=== PATIENT | male | born 1980 | race Caucasian/White ===

== ENCOUNTER 2017-11-06 09:48 | Inpatient (IN) ==
[2017-11-06] MEDS ORDERED: MORPHINE SULFATE 4 MG/1 ML IVP ONE (09:57)
[2017-11-06] MEDS ORDERED: ONDANSETRON 4 MG/2 ML VIAL IVP ONE (09:57)
[2017-11-06] MEDS ORDERED: Pantoprazole Inj 40 MG in Normal Saline Flush 10 ML IVP ONE (09:57)
[2017-11-06] MEDS ORDERED: Sodium Chloride 0.9% 1,000 ML PRIMARY IV ONE (09:57)
[2017-11-06] MEDS ORDERED: NORMAL SALINE 10 ML SYRINGE FLUSH IVP PRN ×2 (09:57→12:21)
--- NOTE | 2017-11-06 10:02 | EKG ---
[address] [address] Measurements Intervals [place] Rate: 60 P: 11 VA: 186 QRS: 52 QRSD: 90 T: 47 QT: 422 QTc: 422 Interpretive Statements SINUS RHYTHM No previous ECG available for comparison Electronically Signed On 11-06-17 16:50:17 MDT by Nader Lee [email or web address]
--- NOTE | 2017-11-06 10:04 | PDOC ---
Abdomen/Flank HPI - General Chief Complaint: Abdomen Pain Stated Complaint: abd pain Date Seen by Provider: 11/06/17 Time Seen by Provider: 09:55 Source: POSITIVE: Patient Exam Limitations: POSITIVE: No limitations Nurse's Notes Reviewed & Considered: Yes - History of Present Illness Initial Comments: The patient is a 37-year-old male who presents to the emergency department with complaints of epigastric abdominal pain. He states he had onset of pain several days ago. He also reports associated general malaise and nausea. Last night the pain seemed to intensify and he also had several episodes of emesis. The pain currently is about an 8 or 9 out of 10 and he is very uncomfortable. He does not have any history of similar pain in the past. The pain does not radiate through to his back or up into his chest. The pain is not significantly worsened with taking a deep breath and actually he states that feels slightly better when he does so. He has not had any associated diarrhea, hematemesis or blood in the stool. He does not have any known history of ulcers or stomach issues. He does drink a fair amount of caffeinated soda however denies tobacco or significant alcohol use. He states the last time he had anything to drink was a beer maybe a week ago. He has not had any prior abdominal surgery. - Patient Home Medications Home Medications: Home Medications NK [No Home Medications Reported] 01/18/14 - Patient Allergies Allergies/Adverse Reactions: Allergies 3 Allergy/AdvReac Type Severity Reaction Status Date / Time Sulfa (Sulfonamide Allergy UNKNOWN Unverified 12/23/14 18:16 Antibiotics) Past Medical History - heen HEENT History: Dentures/Partials Cardiovascular History: Denies History Respiratory History: Denies History Gastrointestinal History: Denies History Genitourinary History: Denies History Endocrine History: Denies History Musculoskeletal History: Back Pain Prosthesis or Implant: No Neurological History: Denies History Blood Disorders: Denies History Psychiatric History: Denies History History of Sexually Transmitted Diseases: No Cancer History: Denies History History of MDRO: No History of Other Communicable Diseases: No Alcohol Use: Rarely In the Past 12 Months, Have Used or Abuse Any Substance: None Previous Surgical History: No Significant Family History: Diabetes Past Medical History Reviewed: Reviewed - No Changes ROS - Limitations ROS Limitations: No Limitations Constitution: DENIES: Chills, Fever Cardiovascular: DENIES: Chest Pain, Heart Palpitations, Edema Respiratory: DENIES: Hurts To Breathe, Shortness Of Breath Neurological: REPORTS: Denies Neuro Symptoms Gastrointestinal: REPORTS: Abdominal Pain, Nausea, Vomitting. DENIES: Diarrhea , Black Stools, Bloody Stools, Constipation Musculoskeletal: REPORTS: Denies MS Symptoms Genitourinary: REPORTS: Denies Symptoms Eyes: REPORTS: Denies Symptoms ENT: REPORTS: Denies Symptoms Skin: DENIES: Rash Abdominal/Flank Pain PE - General Appearance General Appearance: POSITIVE: Alert, Cooperative, No Acute Distress - HEENT HEENT: POSITIVE: Head Inspection Nml, Eyes Inspection Nml, Ears Inspection Nml, Nose Inspection Nml, Dry Mucous Membranes - Neck Neck: POSITIVE: Normal Inspection. NEGATIVE: Lymphadenopathy - Respiratory Respiratory: POSITIVE: No Respiratory Distress, Breath Sounds Normal - Cardiovascular Cardiovascular: POSITIVE: Regular Rate and Rhythm, Heart Sounds Normal - Abdomen Abdomen: Soft: (All Quadrants), Normal Bowel Sounds: (All Quadrants) (bowel sounds are present however somewhat hypoactive), No [place] Mass: (All Quadrants) Additional Abdominal Details: His abdomen is mildly distended, he does have tenderness primarily in the epigastric and left upper quadrants with some localized rebound tenderness, no guarding, bowel sounds are present however somewhat hypoactive, no palpable mass - Back Back: POSITIVE: Normal Inspection - Skin Skin: POSITIVE: Intact, No Rash - Extremities Extremity: Normal ROM: (All Extremities), Normal Inspection: (All Extremities) - Neurological Neurological: POSITIVE: Oriented X3, Motor Normal, Sensation Normal Abdomen Progress - Results Reviewed by me Xrays/CTs/US Reviewed by me: Yes Discussed with Radiologist: Yes Radiology Findings: CT scan of the abdomen and pelvis with IV contrast reveals inflammatory changes around the pancreas consistent with pancreatitis, no other acute findings per radiologist verbal report Lab Results Reviewed by Me: Yes CBC and BMP: 11/06/17 10:13 11/06/17 10:13 EKG Interpretation:: POSITIVE: Normal Sinus Rhythm, Normal Rate, Normal QRS, Normal ST/T - Patient's Progress MDM / ED Course: An IV was established and the patient did receive morphine 4 mg IV, Zofran 4 mg IV and Protonix 40 mg IV as well as a normal saline bolus 1 L. The patient was still having considerable pain even after the morphine. He received Dilaudid 1 mg IV. His EKG shows a normal sinus rhythm with no evidence of acute ST segment or T-wave changes. His d-dimer and troponin are normal. Blood work reveals an elevated white count at 12, elevated amylase and significantly elevated lipase which is still currently being diluted in the lab. CT scan of the abdomen and pelvis shows inflammatory changes around the pancreas consistent with pancreatitis with no other acute abnormalities per radiologist. The patient appears to have pancreatitis. I discussed the patient with Dr. Huff and he is agreed to admit the patient. I also discussed findings with the patient and his and they are in agreement with current plan. - Consult Counseled: POSITIVE: Patient, Family, RE: Lab Results, RE: Radiology Results, RE : DX Patient Care Time - Estimated PCT Patient Care Time (In Minutes): 40 Vital Signs - VS Reviewed Vital Signs Reviewed: Yes Discharge Clinical Impression: Pancreatitis Discharge Disposition: Admit to Inpatient Condition: Fair Follow Up With: NONE,NONE [Primary Care Provider] - Date Decision to Admit to Inpatient: 11/06/17 Time Decision to Admit to Inpatient: 11:20
[2017-11-06 10:20] LABS: BASOPHILS # (AUTO) 0.01 10*3/UL; BASOPHILS % (AUTO) 0.1 % (0-1); EOSINOPHILS # (AUTO) 0.17 10*3/UL; EOSINOPHILS % (AUTO) 1.4 % (0-8); Hematocrit [HCT] 45.8 % (42.0-52.0); Hemoglobin [HGB] 15.8 g/dL (14.0-18.0); LYMPHOCYTES # (AUTO) 1.32 10*3/uL; MEAN CORPUSCULAR HEMOGLOBIN 29.4 PG (27-31); MEAN CORPUSCULAR HGB CONC 34.5 g/dL (33-37); MEAN CORPUSCULAR VOLUME 85.3 FL (80-90); MEAN PLATELET VOLUME 10.9 FL (7.4-12.2); MONOCYTES # (AUTO) 0.64 10*3/UL (0.3-0.8); MONOCYTES % (AUTO) 5.2 % (5-15); NEUTROPHILS % (AUTO) 82.4 % (50-80); RED BLOOD COUNT 5.37 10^6/uL (4.70-6.10)
[2017-11-06 10:29] LABS: PLATELET MORPHOLOGY COMMENT NORMAL MORPHOLOGY (NORM); RBC MORPHOLOGY COMMENT NORMAL MORPHOLOGY (NORM); WBC MORPHOLOGY COMMENT NORMAL MORPHOLOGY (NORM)
[2017-11-06] MEDS ORDERED: HYDROmorphone 2 MG/1 ML IVP ONE ×2 (10:31→11:51)
[2017-11-06 10:46] LABS: BLOOD UREA NITROGEN 11 mg/dL (7-22); BUN/CREATININE RATIO 15.71 (6-20); SERUM ALBUMIN 4.5 g/dL (3.5-4.8)
--- NOTE | 2017-11-06 11:23 | DI ---
CT Abdomen/Pelvis W Contrast,11/06/2017 9:58 AM: Clinical History: Abdominal pain Previous Exam: None at this facility. Findings: Multiple helically acquired CT images are obtained through the abdomen and pelvis following the intra venous administration of 95 cc of Isovue 300. There is mild diffuse fatty infiltration of the liver. The appendix is normal. There are a few small subcentimeter hypodensities too small to characterize within the liver. The spleen is unremarkable. T he adrenals and kidneys are unremarkable. The pancreas demonstrates peripancreatic fat stranding without evidence of pseudocyst or abscess. The urinary bladder is unremarkable. There is no free air nor free fluid. Skeletal structures are unr emarkable. Mild degenerative changes are seen involving the lumbar spine worst at the L5/S1 level. Impression: Inflammatory changes in the peripancreatic fat most consistent with acute pancreatitis. There is no e vidence of abscess nor pseudocyst.
[2017-11-06 11:31] LABS: BILIRUBIN,URINE NEGATIVE (NEG); CLARITY,URINE CLEAR (CLEAR); COLOR,URINE YELLOW (Y); GLUCOSE, URINE (UA) NEGATIVE (NEG); OCCULT BLOOD,URINE NEGATIVE (NEG); PH,URINE 8.5 (5.0-8.5); PROTEIN,URINE TRACE mg/dl (NEG); UROBILINOGEN,URINE 0.2 EU/dL (0.2)
[2017-11-06 11:33] LABS: URINE SAMPLE TYPE VOIDED SPECIMEN
[2017-11-06 11:35] LABS: LIPASE 9710 IU/L (23-300)
[2017-11-06] MEDS ORDERED: CALCIUM CARBONATE 500 MG (TUMS) CHEWABLE TABLET PO PRN (12:21)
[2017-11-06] MEDS ORDERED: ACETAMINOPHEN 325 MG TABLET PO PRN (12:21)
[2017-11-06] MEDS ORDERED: DOCUSATE 100 MG CAPSULE PO PRN (12:21)
[2017-11-06] MEDS ORDERED: LIDOCAINE W/ SODIUM BICARB 0.5 ML SYR SUBD PRN (12:21)
[2017-11-06] MEDS ORDERED: HYDROmorphone 2 MG/1 ML IVP PRN (12:21)
[2017-11-06] MEDS: D5-1/2NS + 20mEq KCL 1,000 ML PRIMARY IV SCH ×2 (12:50→20:06)
[2017-11-06] MEDS: HYDROmorphone 2 MG/1 ML IVP PRN ×4 (13:42→22:21)
--- NOTE | 2017-11-06 14:04 | PDOC ---
HPI - History of Present Illness Date of Service: 11/06/17 Time of Service: 13:50 Chief Complaint: Abdominal pain History of Present Illness: This a very pleasant 37 year old male with no prior past medical history states that 2 nights ago his abdomen started hurting. It was epigastric pain and generalized abdominal pain. He had some nausea and vomiting with this. He denies any diarrhea. He denies any fevers or chills. He's never had an abdominal pain like this before. He states it got worse at work, and he did not notice any association with food per se. In the emergency room, he had a CT scan of the abdomen and pelvis that showed acute pancreatitis and then he had lipase level that was elevated as well. His labs did not reflect any choledocholithiasis. He states he drinks an occasional beer, but has not had anything to drink in the last 4 days. He still has his gallbladder. He does not know his cholesterol status. He tried some ibuprofen but her right back up. Past Medical History Medical History: None Surgical History: No prior surgeries Pertinent Family History: He states there is diabetes in his family concerning his mother and father. Past Social History: Does not smoke. Drinks occasional beer. . Has 3 children described as healthy. 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 Tobacco Use: Never Smoker In the Past 12 Months, Have Used or Abuse Any of the Following Substance: None Alcohol Use: Occasionally Medication / Allergies Home Medications: Home Medications 3 Medication Instructions Recorded Confirmed Type NK [No Home Medications Reported] 01/18/14 11/06/17 History Allergies/Adverse Reactions: Allergies 3 Allergy/AdvReac Type Severity Reaction Status Date / Time Sulfa (Sulfonamide Allergy UNKNOWN Verified 11/06/17 11:44 Antibiotics) Review of Systems - Review of Systems All Systems: Reviewed & No Additional Complaints Except as Stated (I did a 12 point review of systems and it was negative other than that discussed in history present illness.) Exam - Vitals Vital Signs: Vital Signs Temperature 96.8 F Temperature Source Temporal Artery Scan Pulse Rate [Pulse Oximeter] 63 Respiratory Rate 18 Blood Pressure [Right Arm] 158/92 Pulse Ox 98 Oxygen Flow Rate 2 Oxygen Delivery Method Nasal Cannula Height 6 ft 2 in Weight 240 lb - General General Appearance: No Acute Distress, Cooperative - Head Head Exam: Normal Inspection, Normocephalic, Atraumatic - Eye Eye Exam: POSITIVE: No Scleral Icterus - ENT ENT Exam: POSITIVE: Mucous Membranes Dry - Neck Neck Exam: Normal Inspection, No Tenderness, No Lymphadenopathy, No Thyromegaly - Respiratory Respiratory Exam: POSITIVE: Clear to Auscultation - Bilaterally, Breathing Non Labored, Normal to Percussion and Palpation - Cardiovascular Cardiovascular Exam: POSITIVE: RRR, No Murmur, No Clicks, No Gallops, No Rubs, No JVD - GI/Abdominal GI/Abdominal Exam: POSITIVE: Normal Bowel Sounds, Non Distended, Soft Additional GI/Abdominal Exam Details: Epigastric tenderness on palpation - Rectal Rectal Exam: POSITIVE: Deferred - External Exam: POSITIVE: Deferred Exam: POSITIVE: Deferred - Extremities Extremities Exam: POSITIVE: No Clubbing Present, No Edema Present, No Cyanosis Present - Back Back Exam: POSITIVE: No CVA Tenderness - Neurological Neurological Exam: POSITIVE: Alert, Oriented x 3, No Facial Droop, Speech Intact / Clear, Moves All Extremities Equally - Psychiatric Psychiatric Exam: POSITIVE: Normal Affect, Normal Mood - Central Line Examination Central Line Present on Admission: No Results - Labs CBC and BMP: 11/06/17 10:13 11/06/17 10:13 Additional Lab Results: Laboratory Results 11/06/17 11/06/17 11/06/17 Range/Units 10:13 10:13 10:13 WBC 12.37 H (4.8-10.8) 10^3/uL RBC 5.37 (4.70-6.10) 10^6/uL Hgb 15.8 (14.0-18.0) g/dL Hct 45.8 (42.0-52.0) % MCV 85.3 (80-90) FL MCH 29.4 (27-31) PG MCHC 34.5 (33-37) g/dL RDW Std Deviation 40.9 (39-50) fL RDW Coeff of Marija 13.3 (11.5-14.5) % Plt Count 209 (140-350) 10*3/uL MPV 10.9 (7.4-12.2) FL Immature Gran % (Auto) 0.2 (0-5) % Neut % (Auto) 82.4 H (50-80) % Lymph % (Auto) 10.7 (10-50) % [place] % (Auto) 5.2 (5-15) % Eos % (Auto) 1.4 (0-8) % Baso % (Auto) 0.1 (0-1) % Immature Gran # (Auto) 0.03 10*3/UL Neut # (Auto) 10.20 10*3/UL Lymph # (Auto) 1.32 10*3/uL [place] # (Auto) 0.64 (0.3-0.8) 10*3/UL Eos # (Auto) 0.17 10*3/UL Baso # (Auto) 0.01 10*3/UL WBC Morphology Comment Normal morphology (NORM) Plt Morphology Comment Normal morphology (NORM) RBC Morph Comment Normal morphology (NORM) D-Dimer 0.38 (0.00-0.59) mg/L Sodium 140 (135-145) meq/L Potassium 3.9 (3.8-5.2) meq/L Chloride 104 (98-112) meq/L Carbon Dioxide 22 L (23-33) meq/L Anion Gap 14 (5-20) BUN 11 (7-22) mg/dL Creatinine 0.7 (0.70-1.50) mg/dL Estimated GFR > 60 (>60 ml/min/1.73m(2)) BUN/Creatinine Ratio 15.71 (6-20) Glucose 143 H (78-110) mg/dL Calculated Osmolality 290.0 (267-292) mOsm/kg Lactic Acid (0.70-2.10) MMOL/L Calcium 9.3 (8.7-10.7) mg/dL Total Bilirubin 0.8 (0.3-1.2) mg/dL AST 30 (21-57) IU/L ALT 65 (21-72) IU/L Alkaline Phosphatase 78 (38-126) IU/L Troponin I (< 0.040) ng/mL C-Reactive Protein 2.6 H (0.0-0.9) mg/dL Total Protein 7.8 (6.1-8.0) g/dL Albumin 4.5 (3.5-4.8) g/dL Globulin 3.3 (2.50-4.10) g/dL Albumin/Globulin Ratio 1.30 (1.3-2.0) mg/g Amylase 448 H (30-110) U/L Lipase 9710 H* (23-300) IU/L Ur Collection Type Urine Color (Y) Urine Clarity (CLEAR) Urine pH (5.0-8.5) Ur Specific [place] (1.005-1.030) Urine Protein (NEG) mg/dl Urine Glucose (UA) (NEG) mg/dL Urine Ketones (NEG) Urine Occult Blood (NEG) Urine Nitrate (NEG) Urine Bilirubin (NEG) Urine Urobilinogen (0.2) EU/dL Ur Leukocyte Esterase (NEG) Ur Culture Indicated? Serum Alcohol (0-10) mg/dL 11/06/17 11/06/17 11/06/17 Range/Units 10:13 10:13 11:06 WBC (4.8-10.8) 10^3/uL RBC (4.70-6.10) 10^6/uL Hgb (14.0-18.0) g/dL Hct (42.0-52.0) % MCV (80-90) FL MCH (27-31) PG MCHC (33-37) g/dL RDW Std Deviation (39-50) fL RDW Coeff of Marija (11.5-14.5) % Plt Count (140-350) 10*3/uL MPV (7.4-12.2) FL Immature Gran % (Auto) (0-5) % Neut % (Auto) (50-80) % Lymph % (Auto) (10-50) % [place] % (Auto) (5-15) % Eos % (Auto) (0-8) % Baso % (Auto) (0-1) % Immature Gran # (Auto) 10*3/UL Neut # (Auto) 10*3/UL Lymph # (Auto) 10*3/uL [place] # (Auto) (0.3-0.8) 10*3/UL Eos # (Auto) 10*3/UL Baso # (Auto) 10*3/UL WBC Morphology Comment (NORM) Plt Morphology Comment (NORM) RBC Morph Comment (NORM) D-Dimer (0.00-0.59) mg/L Sodium (135-145) meq/L Potassium (3.8-5.2) meq/L Chloride (98-112) meq/L Carbon Dioxide (23-33) meq/L Anion Gap (5-20) BUN (7-22) mg/dL Creatinine (0.70-1.50) mg/dL Estimated GFR (>60 ml/min/1.73m(2)) BUN/Creatinine Ratio (6-20) Glucose (78-110) mg/dL Calculated Osmolality (267-292) mOsm/kg Lactic Acid 1.1 (0.70-2.10) MMOL/L Calcium (8.7-10.7) mg/dL Total Bilirubin (0.3-1.2) mg/dL AST (21-57) IU/L ALT (21-72) IU/L Alkaline Phosphatase (38-126) IU/L Troponin I < 0.012 (< 0.040) ng/mL C-Reactive Protein (0.0-0.9) mg/dL Total Protein (6.1-8.0) g/dL Albumin (3.5-4.8) g/dL Globulin (2.50-4.10) g/dL Albumin/Globulin Ratio (1.3-2.0) mg/g Amylase (30-110) U/L Lipase (23-300) IU/L Ur Collection Type Urine Color (Y) Urine Clarity (CLEAR) Urine pH (5.0-8.5) Ur Specific [place] (1.005-1.030) Urine Protein (NEG) mg/dl Urine Glucose (UA) (NEG) mg/dL Urine Ketones (NEG) Urine Occult Blood (NEG) Urine Nitrate (NEG) Urine Bilirubin (NEG) Urine Urobilinogen (0.2) EU/dL Ur Leukocyte Esterase (NEG) Ur Culture Indicated? Serum Alcohol < 10 (0-10) mg/dL 11/06/17 Range/Units 11:20 WBC (4.8-10.8) 10^3/uL RBC (4.70-6.10) 10^6/uL Hgb (14.0-18.0) g/dL Hct (42.0-52.0) % MCV (80-90) FL MCH (27-31) PG MCHC (33-37) g/dL RDW Std Deviation (39-50) fL RDW Coeff of Marija (11.5-14.5) % Plt Count (140-350) 10*3/uL MPV (7.4-12.2) FL Immature Gran % (Auto) (0-5) % Neut % (Auto) (50-80) % Lymph % (Auto) (10-50) % [place] % (Auto) (5-15) % Eos % (Auto) (0-8) % Baso % (Auto) (0-1) % Immature Gran # (Auto) 10*3/UL Neut # (Auto) 10*3/UL Lymph # (Auto) 10*3/uL [place] # (Auto) (0.3-0.8) 10*3/UL Eos # (Auto) 10*3/UL Baso # (Auto) 10*3/UL WBC Morphology Comment (NORM) Plt Morphology Comment (NORM) RBC Morph Comment (NORM) D-Dimer (0.00-0.59) mg/L Sodium (135-145) meq/L Potassium (3.8-5.2) meq/L Chloride (98-112) meq/L Carbon Dioxide (23-33) meq/L Anion Gap (5-20) BUN (7-22) mg/dL Creatinine (0.70-1.50) mg/dL Estimated GFR (>60 ml/min/1.73m(2)) BUN/Creatinine Ratio (6-20) Glucose (78-110) mg/dL Calculated Osmolality (267-292) mOsm/kg Lactic Acid (0.70-2.10) MMOL/L Calcium (8.7-10.7) mg/dL Total Bilirubin (0.3-1.2) mg/dL AST (21-57) IU/L ALT (21-72) IU/L Alkaline Phosphatase (38-126) IU/L Troponin I (< 0.040) ng/mL C-Reactive Protein (0.0-0.9) mg/dL Total Protein (6.1-8.0) g/dL Albumin (3.5-4.8) g/dL Globulin (2.50-4.10) g/dL Albumin/Globulin Ratio (1.3-2.0) mg/g Amylase (30-110) U/L Lipase (23-300) IU/L Ur Collection Type Voided specimen Urine Color Yellow (Y) Urine Clarity Clear (CLEAR) Urine pH 8.5 (5.0-8.5) Ur Specific [place] 1.015 (1.005-1.030) Urine Protein Trace (NEG) mg/dl Urine Glucose (UA) Negative (NEG) mg/dL Urine Ketones 80 (NEG) Urine Occult Blood Negative (NEG) Urine Nitrate Negative (NEG) Urine Bilirubin Negative (NEG) Urine Urobilinogen 0.2 (0.2) EU/dL Ur Leukocyte Esterase Negative (NEG) Ur Culture Indicated? Culture not set Serum Alcohol (0-10) mg/dL - Imaging Status: Image Reviewed by Me (CT scan, on my view, may show pancreatitis. I reviewed the report from the radiologist which was consistent with pancreatitis. ) Assessment and Plan - Patient Problems (1) Pancreatitis Current Visit: Yes Status: Acute Code(s): K85.90 - Acute pancreatitis without necrosis or infection, unspecified Qualifiers: Chronicity: acute Pancreatitis type: idiopathic Acute pancreatitis complication: no infection or necrosis Qualified Code(s): K85.00 - Idiopathic acute pancreatitis without necrosis or infection - Assessment / Plan Additional Assessment/Plan Details: admit the patient IV narcotics and antiemetics NPO, may consider ice chips if patient desires do studies to make sure gall bladder is not the cause check IgE level check lipase in AM check lipids
[2017-11-06] MEDS: ONDANSETRON 4 MG/2 ML VIAL IVP PRN ×2 (18:53→22:30)
[2017-11-06] MEDS ORDERED: MORPHINE SULFATE 4 MG/1 ML IVP PRN (23:06)
[2017-11-07] MEDS: HYDROmorphone 2 MG/1 ML IVP PRN ×2 (02:00→11:19)
[2017-11-07] MEDS: ONDANSETRON 4 MG/2 ML VIAL IVP PRN (02:01)
[2017-11-07] MEDS: D5-1/2NS + 20mEq KCL 1,000 ML PRIMARY IV SCH ×3 (03:13→19:35)
[2017-11-07] MEDS: Prochlorperazine Edisylate Inj 10mg/2ml vial IVP PRN ×2 (05:13→10:43)
[2017-11-07 05:21] LABS: BASOPHILS # (AUTO) 0 10*3/UL; BASOPHILS % (AUTO) 0 % (0-1); EOSINOPHILS # (AUTO) 0.02 10*3/UL; EOSINOPHILS % (AUTO) 0.1 % (0-8); Hematocrit [HCT] 44.6 % (42.0-52.0); Hemoglobin [HGB] 15.1 g/dL (14.0-18.0); LYMPHOCYTES # (AUTO) 0.78 10*3/uL; MEAN CORPUSCULAR HEMOGLOBIN 29.8 PG (27-31); MEAN CORPUSCULAR HGB CONC 33.9 g/dL (33-37); MEAN CORPUSCULAR VOLUME 88.1 FL (80-90); MEAN PLATELET VOLUME 10.6 FL (7.4-12.2); MONOCYTES # (AUTO) 0.84 10*3/UL (0.3-0.8); MONOCYTES % (AUTO) 5.9 % (5-15); NEUTROPHILS # (AUTO) 12.53 10*3/UL; NEUTROPHILS % (AUTO) 88.4 % (50-80); RED BLOOD COUNT 5.06 10^6/uL (4.70-6.10)
[2017-11-07 05:31] LABS: PLATELET MORPHOLOGY COMMENT NORMAL MORPHOLOGY (NORM); RBC MORPHOLOGY COMMENT NORMAL MORPHOLOGY (NORM); WBC MORPHOLOGY COMMENT NORMAL MORPHOLOGY (NORM)
[2017-11-07 05:34] LABS: BLOOD UREA NITROGEN 7 mg/dL (7-22); SERUM ALBUMIN 4.4 g/dL (3.5-4.8)
[2017-11-07 06:07] LABS: LIPASE 5984 IU/L (23-300)
--- NOTE | 2017-11-07 08:39 | DI ---
US Abdomen Complete,11/07/2017 7:00 AM: Clinical History: Dilation of the common bile duct. Previous Exam: None at this facility. Findings: Multiple grayscale and color Doppler sonographic images are obtained through the abdomen. The liver d emonstrates diffuse fatty infiltration. Common bile duct is normal measuring 4 mm. The gallbladder is also normal the gallbladder wall measur ed 3 mm. There is no pericholecystic fluid. The pancreas is not well seen. The right kidney measured 12.0 cm in length without hydronephrosis nor nephrolithiasis. The spleen is grossly normal. The left kidney measured 13.1 cm in length without hydronephrosis nor nephrolithiasis. Impression: Diffuse fatty infiltration of the liver otherwise unremarkable.
--- NOTE | 2017-11-07 10:11 | DI ---
MRI Abdomen WO Contrast,11/07/2017 7:00 AM: Clinical History: Pancreatitis Previous Exam: CT abdomen pelvis performed November 06, 2017 Findings: Multiplanar MR images are obtained through the abdomen following MRCP protocol, and demonstrate perip ancreatic edema. The The liver, spleen and gallbladder appear grossly normal. The cystic duct is normal. The common bile duct is normal. Left and right hepatic ducts are also normal. The pancreatic duct is not well seen on this exam. There is a small subcentimeter cyst noted within the hepatic dome which is within normal limits. Impression: Inflammatory changes of the pancreas consistent with acute pancreatitis. No evidence of common bile d uct obstruction on this exam.
[2017-11-07 11:08] LABS: URINE SAMPLE TYPE CLEAN CATCH URINE
[2017-11-07 11:09] LABS: AMPHETAMINE SCREEN NEGATIVE (NEG); CANNABINOID SCREEN,URINE NEGATIVE (NEG); COCAINE SCREEN NEGATIVE (NEG); METHADONE URINE SCREEN NEGATIVE (NEG); METHAMPHETAMINES SCREEN,URINE NEGATIVE (NEG); OPIATE SCREEN,URINE POSITIVE (NEG); URINE SPECIFIC GRAVITY - MAN 1.013
[2017-11-07 12:14] LABS: CHOL/HDL RATIO 4.95 RATIO (0-4.0)
--- NOTE | 2017-11-07 12:39 | PDOC(PROG) ---
Date and Time of Service: 11/07/2017, 1235 Interval History: No chest pain, no shortness breath. Abdominal pain better. Having frequent nausea. He wasn't overly conversant, but followed commands very well. Did answer questions appropriately but is still tired and in some pain. Answer questions of his and mother. Ultimately, we found a fatty liver. Still looking for potential cause of pancreatitis and will get lipid panels today and an IgE level is pending. Objective : Data - Labs CBC and BMP: 11/07/17 05:03 11/07/17 05:03 Additional Lab Results: 11/07/17 05:03 Lipase 5984 H* Urine drug screen negative - Imaging MRI Status: Report Reviewed by Me (Abdominal MRI scan negative for pancreatic duct dilation but pancreatic duct not well visualized probably because of inflammation. No common bile duct stone.) Ultrasound Status: Report Reviewed by Me (Abdominal ultrasound negative.) Objective : Exam - General General Appearance: No Acute Distress, Cooperative Additional General Exam Details: Vital Signs (24 hrs) Temp Pulse Pulse Pulse Resp BP Pulse Ox 11/07/17 11:51 98.8 F 87 16 127/81 94 11/07/17 11:00 89 94 11/07/17 07:22 98.6 F 88 16 138/84 93 11/07/17 07:00 84 75 94 11/07/17 04:47 97.1 F 65 20 140/93 97 11/07/17 04:42 93 11/07/17 03:00 70 93 11/07/17 00:31 97.2 F 72 20 144/95 98 11/06/17 23:00 70 96 11/06/17 20:55 97 F 67 20 145/88 97 11/06/17 19:00 63 97 11/06/17 16:06 97.2 F 77 16 158/90 96 - Head Head Exam: Normal Inspection, Normocephalic, Atraumatic - Eye Eye Exam: No Scleral Icterus - ENT ENT Exam: Mucous Membranes Moist - Respiratory Respiratory Exam: Clear to Auscultation - Bilaterally, Breathing Non Labored - Cardiovascular Cardiovascular Exam: RRR, No Murmur, No Clicks, No Gallops, No Rubs, No JVD Additional Cardiovascular Details: Rhythm strips reviewed, patient has sinus arrhythmia. - GI/Abdominal GI/Abdominal Exam: Normal Bowel Sounds, Non Distended, Soft Additional GI/Abdominal Exam Details: Abdominal pain present, but better than yesterday. - Extremities Extremities Exam: No Clubbing Present, No Edema Present, No Cyanosis Present - Neurological Neurological Exam: Alert, Oriented x 3, No Facial Droop, Speech Intact / Clear, Moves All Extremities Equally Assessment and Plan - Patient Problems (1) Pancreatitis Current Visit: Yes Status: Acute Code(s): K85.90 - Acute pancreatitis without necrosis or infection, unspecified Qualifiers: Chronicity: acute Pancreatitis type: idiopathic Acute pancreatitis complication: no infection or necrosis Qualified Code(s): K85.00 - Idiopathic acute pancreatitis without necrosis or infection (2) Fatty liver disease, nonalcoholic Current Visit: Yes Status: Acute Code(s): K76.0 - Fatty (change of) liver, not elsewhere classified - Assessment / Plan Additional Assessment/Plan Details: Lipids are pending at this time. I will go ahead and advance diet with high chips and sips although he states he is not overly hungry. I would like to get him on some by mouth medications for pain as he's had significant nausea and vomiting not just for pancreatitis but also from parenteral IV pain medicines. Consider HIDA scan outside of the hospital look at gallbladder function. May discuss with surgery and curbside Check labs in a.m. Continue fluids. Discussed with family in detail. I do think for the fatty liver, the patient needs a better diet. It's described to me that on a workday the patient might drink 5 Mountain dews any chocolate bars.
[2017-11-07] MEDS: HYDROcodone-APAP 5 MG -325 MG TABLET PO PRN ×3 (14:20→23:56)
[2017-11-08] MEDS: D5-1/2NS + 20mEq KCL 1,000 ML PRIMARY IV SCH ×3 (03:13→20:08)
[2017-11-08 05:02] LABS: BASOPHILS # (AUTO) 0 10*3/UL; BASOPHILS % (AUTO) 0 % (0-1); EOSINOPHILS # (AUTO) 0.01 10*3/UL; EOSINOPHILS % (AUTO) 0.1 % (0-8); Hematocrit [HCT] 43.5 % (42.0-52.0); Hemoglobin [HGB] 14.7 g/dL (14.0-18.0); LYMPHOCYTES # (AUTO) 0.52 10*3/uL; MEAN CORPUSCULAR HEMOGLOBIN 29.9 PG (27-31); MEAN CORPUSCULAR HGB CONC 33.8 g/dL (33-37); MEAN CORPUSCULAR VOLUME 88.4 FL (80-90); MEAN PLATELET VOLUME 10.2 FL (7.4-12.2); MONOCYTES # (AUTO) 1.32 10*3/UL (0.3-0.8); MONOCYTES % (AUTO) 7.5 % (5-15); NEUTROPHILS # (AUTO) 15.72 10*3/UL; NEUTROPHILS % (AUTO) 89.2 % (50-80); RED BLOOD COUNT 4.92 10^6/uL (4.70-6.10)
[2017-11-08 05:10] LABS: BLOOD UREA NITROGEN 6 mg/dL (7-22); BUN/CREATININE RATIO 8.57 (6-20); SERUM ALBUMIN 4.3 g/dL (3.5-4.8)
[2017-11-08 05:15] LABS: HEMOGLOBIN A1C 5.69 % (4.2-6.0); PLATELET MORPHOLOGY COMMENT NORMAL MORPHOLOGY (NORM); RBC MORPHOLOGY COMMENT NORMAL MORPHOLOGY (NORM); WBC MORPHOLOGY COMMENT NORMAL MORPHOLOGY (NORM)
[2017-11-08 05:30] LABS: LIPASE 1559 IU/L (23-300)
[2017-11-08] MEDS: HYDROmorphone 2 MG/1 ML IVP PRN ×3 (07:21→19:06)
[2017-11-08] MEDS: HYDROcodone-APAP 5 MG -325 MG TABLET PO PRN ×3 (08:06→19:04)
--- NOTE | 2017-11-08 14:35 | PDOC(PROG) ---
Date and Time of Service: 11/08/2017, 1430 Interval History: plans of chest pain or shortness breath. Ambulating in the hallway some. Still gets fairly sedated with IV narcotics. States that his pain is better controlled, but still present but not worse with sips and chips. Objective : Data - Labs CBC and BMP: 11/08/17 04:54 11/08/17 04:54 Objective : Exam - General General Appearance: No Acute Distress, Cooperative Additional General Exam Details: Vital Signs - Last Taken Temperature 99.3 F 11/08/17 12:11 Pulse Rate 91 11/08/17 12:11 Respiratory Rate 16 11/08/17 12:11 Blood Pressure 132/81 11/08/17 12:11 Pulse Ox 91 11/08/17 12:11 - Eye Eye Exam: No Scleral Icterus - ENT ENT Exam: Mucous Membranes Moist - Respiratory Respiratory Exam: Clear to Auscultation - Bilaterally, Breathing Non Labored - Cardiovascular Cardiovascular Exam: RRR, No Murmur, No Clicks, No Gallops, No Rubs, No JVD - GI/Abdominal GI/Abdominal Exam: Normal Bowel Sounds, Non Tender, Non Distended, Soft Additional GI/Abdominal Exam Details: I cannot elicit tenderness with palpation today. This is definitely a change from admission. - Extremities Extremities Exam: No Clubbing Present, No Edema Present, No Cyanosis Present - Neurological Neurological Exam: Alert, Oriented x 3, Normal Gait, No Facial Droop, Speech Intact / Clear, Moves All Extremities Equally Assessment and Plan - Patient Problems (1) Pancreatitis Current Visit: Yes Status: Acute Code(s): K85.90 - Acute pancreatitis without necrosis or infection, unspecified Qualifiers: Chronicity: acute Pancreatitis type: idiopathic Acute pancreatitis complication: no infection or necrosis Qualified Code(s): K85.00 - Idiopathic acute pancreatitis without necrosis or infection (2) Fatty liver disease, nonalcoholic Current Visit: Yes Status: Acute Code(s): K76.0 - Fatty (change of) liver, not elsewhere classified - Assessment / Plan Additional Assessment/Plan Details: At this point, I think we can go ahead and space out the Dilaudid and stop the morphine entirely. Try to work towards oral pills and continue sips and chips. If patient's appetite improves, will advance diet. Unclear why white blood cell count is elevated but I think its inflammatory from the pancreatitis. Do not suspect infection at this point low-grade temps do not seem to indicate any sort of developing abscess at this point. If these do persist, may be worthwhile to reimage the patient in a month or so to make sure there is no pseudocyst. Discussed with patient and at bedside.
[2017-11-08] MEDS: ONDANSETRON 4 MG/2 ML VIAL IVP PRN (21:45)
[2017-11-09] MEDS: HYDROcodone-APAP 5 MG -325 MG TABLET PO PRN ×5 (00:21→12:01)
[2017-11-09] MEDS: HYDROmorphone 2 MG/1 ML IVP PRN ×2 (02:17→09:02)
[2017-11-09] MEDS: ONDANSETRON 4 MG/2 ML VIAL IVP PRN ×4 (02:17→18:52)
[2017-11-09] MEDS: D5-1/2NS + 20mEq KCL 1,000 ML PRIMARY IV SCH ×3 (04:30→20:35)
[2017-11-09 05:11] LABS: Hematocrit [HCT] 40.8 % (42.0-52.0); Hemoglobin [HGB] 13.4 g/dL (14.0-18.0); MEAN CORPUSCULAR HEMOGLOBIN 29.1 PG (27-31); MEAN CORPUSCULAR HGB CONC 32.8 g/dL (33-37); MEAN CORPUSCULAR VOLUME 88.7 FL (80-90); MEAN PLATELET VOLUME 10.9 FL (7.4-12.2)
[2017-11-09 05:18] LABS: BLOOD UREA NITROGEN 9 mg/dL (7-22); LIPASE 343 IU/L (23-300); SERUM ALBUMIN 3.8 g/dL (3.5-4.8)
[2017-11-09 05:23] LABS: BAND NEUTROPHILS % 4 % (0-10); BASOPHILS % (MANUAL) 0 % (0-1); EOSINOPHILS % (MANUAL) 0 % (0-8); MONOCYTES % (MANUAL) 7 % (0-12); NEUTROPHILS % (MANUAL) 82 % (50-80); PLATELET MORPHOLOGY COMMENT NORMAL MORPHOLOGY (NORM); RBC MORPHOLOGY COMMENT NORMAL MORPHOLOGY (NORM); WBC MORPHOLOGY COMMENT NORMAL MORPHOLOGY (NORM)
[2017-11-09] MEDS: Prochlorperazine Edisylate Inj 10mg/2ml vial IVP PRN (11:27)
[2017-11-09] MEDS ORDERED: oxyCODONE-ACETAMINOPHEN 5-325 TAB PO PRN (12:28)
[2017-11-09] MEDS ORDERED: fentaNYL Inj 100 MCG/2 ML VIAL IVP PRN (12:29)
--- NOTE | 2017-11-09 12:58 | PDOC(PROG) ---
Date and Time of Service: 11/09/2017, 1215 Interval History: No chest pain. Shortness breath. States that overall his abdominal pain has gone from a 10 on admission to a 5 or so today. He stated to me that he felt his nausea and vomiting was the worst aspect of things. His is concerned that the pancreas could be worse. Objective : Data - Labs CBC and BMP: 11/09/17 04:15 11/09/17 04:15 Objective : Exam - General General Appearance: No Acute Distress, Cooperative Additional General Exam Details: Vital Signs (24 hrs) Temp Pulse Pulse Resp BP Pulse Ox 11/09/17 11:34 78 11/09/17 11:00 95 11/09/17 09:00 97.8 F 61 16 128/80 93 11/09/17 07:00 90 18 11/09/17 06:40 96 11/09/17 05:00 97.7 F 92 18 139/90 96 11/09/17 03:00 64 96 11/09/17 00:57 97.8 F 76 16 138/71 96 11/08/17 23:00 71 11/08/17 22:44 92 11/08/17 21:00 98 F 77 16 141/77 92 11/08/17 19:00 90 16 95 11/08/17 16:32 99.4 F 90 16 133/88 93 11/08/17 15:05 84 11/08/17 15:00 91 To me, more alert on less pain medications today. Able to stand up and walk without assistance much better than he could yesterday or the day before when I watched him ambulate in the hallway. - Eye Eye Exam: No Scleral Icterus - ENT ENT Exam: Mucous Membranes Moist - Respiratory Respiratory Exam: Clear to Auscultation - Bilaterally, Breathing Non Labored - Cardiovascular Cardiovascular Exam: RRR, No Murmur, No Clicks, No Gallops, No Rubs, No JVD - GI/Abdominal GI/Abdominal Exam: Normal Bowel Sounds, Non Distended, Soft Additional GI/Abdominal Exam Details: I still cannot elicit any more tenderness when I palpate the abdomen, he is not grimacing or complaining of pain on examination. - Extremities Extremities Exam: No Clubbing Present, No Edema Present, No Cyanosis Present - Neurological Neurological Exam: Alert, Oriented x 3, Normal Gait, No Facial Droop, Speech Intact / Clear, Moves All Extremities Equally Assessment and Plan - Patient Problems (1) Pancreatitis Current Visit: Yes Status: Acute Code(s): K85.90 - Acute pancreatitis without necrosis or infection, unspecified Qualifiers: Chronicity: acute Pancreatitis type: idiopathic Acute pancreatitis complication: no infection or necrosis Qualified Code(s): K85.00 - Idiopathic acute pancreatitis without necrosis or infection (2) Fatty liver disease, nonalcoholic Current Visit: Yes Status: Acute Code(s): K76.0 - Fatty (change of) liver, not elsewhere classified (3) Leukocytosis Current Visit: Yes Status: Acute Code(s): D72.829 - Elevated white blood cell count, unspecified Qualifiers: Leukocytosis type: leukemoid reaction Qualified Code(s): D72.823 - Leukemoid reaction - Assessment / Plan Additional Assessment/Plan Details: Still requesting a lot of pain medications. Not necessarily commiserate pain. Particularly with improvement in symptoms at least subjectively. Given elevation in white blood cell count, continued pain that seems to be discrepant in terms of exam and lab findings and complaints, I will go ahead and reimage although I doubt that there is any pseudocyst. Would be good to rule out. The is concerned that there could be worsened issues with the pancreas so hopefully this will alleviate their worries. Check the chest as well as patient still hypoxic although I think this is more likely narcotic induced. I think the nausea and vomiting his BUN is much from narcotics as it could be from pancreatitis, switch to Percocet and to fentanyl only if Percocet does not control pain and advance diet. We'll check labs in a.m. Await CT scans of chest abdomen and pelvis.
--- NOTE | 2017-11-09 14:29 | DI ---
EXAM: CT Angiography Chest With Intravenous Contrast CLINICAL HISTORY: Hypoxia, elevated WBC. No priors, 601 images, 95 ml Isovue 370 IV : TECHNIQUE: Axial computed tomographic angiography images of the chest with intravenous contrast using pulmonary embolism protocol. MIP reconstructed images were created and reviewed. Coronal and sagittal reformatted images were created and reviewed. COMPARISON: No relevant prior studies available. FINDINGS: Pulmonary arteries: Small filling defect left lower lobe pulmonary artery may be due to motion artifact, cannot exclude small pulmonary embolus, axial image 47 series 3. Aorta: No acute findings. No thoracic aortic aneurysm. Lungs: Bibasilar lung atelectasis. Anterior right upper lobe atelectasis or infiltrate. No mass. Pleural space: Tiny bilateral pleural effusions. No pneumothorax. Heart: Unremarkable. No cardiomegaly. No significant pericardial effusion. No evidence of RV dysfunction. Bones/joints: No acute fracture. No dislocation. Soft tissues: Unremarkable. Lymph nodes: Unremarkable. No enlarged lymph nodes. Liver: Fatty liver. Pancreas: Inflammatory changes or fluid around the pancreas consistent with acute pancreatitis, not fully imaged. IMPRESSION: 1. Small filling defect left lower lobe pulmonary artery may be due to motion artifact, cannot exclude small pulmonary embolus. 2. Tiny bilateral pleural effusions. 3. Bibasilar lung atelectasis. Anterior right upper lobe atelectasis or infiltrate. 4. Inflammatory changes or fluid around the pancreas consistent with acute pancreatitis, not fully imaged. [employer] 11/09/17 14:39 Verify Receipt with Nurse Verified receipt with JAJA Marshall on 11/09 14:39 (-06:00)
--- NOTE | 2017-11-09 14:37 | DI ---
EXAM: CT Abdomen and Pelvis With Intravenous Contrast CLINICAL HISTORY: ITS.REASON pancreatitis, question pseudocyst Physician Notes: Tech Comments: TECHNIQUE: Axial computed tomography images of the abdomen and pelvis with intravenous contrast. COMPARISON: CT abdomen and pelvis 11/06/17 FINDINGS: Lung bases: See below. Pleural space: Tiny bilateral pleural effusions. Bibasilar lung and fibular atelectasis/airspace disease. ABDOMEN: Liver: A few small low-density lesion in the liver, largest 7 mm. Fatty liver. Gallbladder and bile ducts: Unremarkable. No calcified stones. No ductal dilation. Pancreas: Interval worsening Inflammatory changes and small free fluid around the pancreas, consistent with worsening acute pancreatitis. No pseudocyst or abscess. Spleen: Unremarkable. No splenomegaly. Adrenals: Unremarkable. No mass. Kidneys and ureters: 12 mm low-density lesion left kidney. No hydronephrosis. Stomach and bowel: Unremarkable. No obstruction. No mucosal thickening. Appendix: Normal appendix. PELVIS: Bladder: Unremarkable. No mass. Reproductive: Unremarkable as visualized. ABDOMEN and PELVIS: Intraperitoneal space: No free air. Bones/joints: No acute fracture. No dislocation. Soft tissues: Small bilateral fat-containing inguinal hernias. Vasculature: Unremarkable. No abdominal aortic aneurysm. Lymph nodes: Unremarkable. No enlarged lymph nodes. IMPRESSION: 1. Interval worsening Inflammatory changes and small free fluid around the pancreas, consistent with worsening acute pancreatitis. No pseudocyst or abscess. 2. Tiny bilateral pleural effusions. Bibasilar lung and fibular atelectasis/airspace disease. These are worse than prior study.
[2017-11-09] MEDS ORDERED: ENOXAPARIN SODIUM 100 MG/1 ML SYRINGE SUBCUT ONE (14:50)
[2017-11-09] MEDS ORDERED: NALOXONE 0.4 MG/1 ML VIAL IVP PRN (14:52)
[2017-11-09] MEDS: HYDROmorphone/PF/PCA 9 MG/30 ML IV SCH (15:52)
[2017-11-09] MEDS: ENOXAPARIN SODIUM 100 MG/1 ML SYRINGE SUBCUT SCH (15:56)
--- NOTE | 2017-11-09 17:54 | DI ---
EXAM: US Duplex Bilateral Lower Extremity Veins CLINICAL HISTORY: ITS.REASON possible PE, question LE DVT Physician Notes: Tech Comments: TECHNIQUE: Real-time duplex ultrasound scan of the bilateral lower extremity veins integrating B-mode two-dimensional vascular structure, Doppler spectral analysis, color flow Doppler imaging and compression. COMPARISON: No relevant prior studies available. FINDINGS: Right deep veins: Unremarkable. No DVT in the right common femoral, femoral, proximal deep femoral or popliteal veins. The veins demonstrate normal color flow, are normally compressible, with normal phasic flow and/or augmentation response. Right superficial veins: Unremarkable. No thrombus in the visualized right great saphenous vein. Left deep veins: Unremarkable. No DVT in the left common femoral, femoral, proximal deep femoral or popliteal veins. The veins demonstrate normal color flow, are normally compressible, with normal phasic flow and/or augmentation response. Left superficial veins: Unremarkable. No thrombus in the visualized left great saphenous vein. Soft tissues: No acute findings. No popliteal cyst. IMPRESSION: Normal bilateral lower extremity duplex venous ultrasound.
[2017-11-10] MEDS: ONDANSETRON 4 MG/2 ML VIAL IVP PRN ×2 (00:01→11:11)
[2017-11-10] MEDS: ENOXAPARIN SODIUM 100 MG/1 ML SYRINGE SUBCUT SCH (03:33)
[2017-11-10] MEDS: D5-1/2NS + 20mEq KCL 1,000 ML PRIMARY IV SCH ×2 (03:33→11:30)
[2017-11-10 04:25] VITALS: TEMP 98.4
[2017-11-10 06:49] LABS: BASOPHILS # (AUTO) 0.01 10*3/UL; BASOPHILS % (AUTO) 0.1 % (0-1); EOSINOPHILS # (AUTO) 0.17 10*3/UL; EOSINOPHILS % (AUTO) 1.5 % (0-8); Hematocrit [HCT] 38.7 % (42.0-52.0); Hemoglobin [HGB] 12.8 g/dL (14.0-18.0); LYMPHOCYTES # (AUTO) 0.57 10*3/uL; MEAN CORPUSCULAR HEMOGLOBIN 29.4 PG (27-31); MEAN CORPUSCULAR HGB CONC 33.1 g/dL (33-37); MEAN CORPUSCULAR VOLUME 88.8 FL (80-90); MEAN PLATELET VOLUME 10.7 FL (7.4-12.2); MONOCYTES # (AUTO) 1.11 10*3/UL (0.3-0.8); MONOCYTES % (AUTO) 9.5 % (5-15); NEUTROPHILS # (AUTO) 9.81 10*3/UL; NEUTROPHILS % (AUTO) 83.9 % (50-80); RED BLOOD COUNT 4.36 10^6/uL (4.70-6.10)
[2017-11-10] MEDS: Prochlorperazine Edisylate Inj 10mg/2ml vial IVP PRN (06:54)
[2017-11-10 06:58] LABS: BLOOD UREA NITROGEN 10 mg/dL (7-22); BUN/CREATININE RATIO 14.28 (6-20); LIPASE 409 IU/L (23-300); SERUM ALBUMIN 3.5 g/dL (3.5-4.8)
[2017-11-10] MEDS: HYDROmorphone/PF/PCA 9 MG/30 ML IV SCH (07:03)
[2017-11-10 07:10] LABS: PLATELET MORPHOLOGY COMMENT NORMAL MORPHOLOGY (NORM); RBC MORPHOLOGY COMMENT NORMAL MORPHOLOGY (NORM); WBC MORPHOLOGY COMMENT NORMAL MORPHOLOGY (NORM)
--- NOTE | 2017-11-10 09:35 | DI ---
NM Pulmonary Perf Vent VQ,11/10/2017 6:00 AM: Clinical History: Possible pulmonary embolism within the left lower lobe. Previous Exam: CTA chest performed November 09, 2017 Radiopharmaceutical: 45 mCi of technetium 90 9M DTPA were administered and an aerosolized form for th e ventilation scan and 6.0 mCi of technetium 99 M. macro aggregated albumin was administered for the flow portion of the exam. Findings: Ventilation and perfusion images are obtained, and demonstrate no evidence of perfusion or ventilatio n defect. Impression: Normal VQ scan.
[2017-11-10 09:41] VITALS: BP 133/91; O2SAT 93
[2017-11-10 10:24] VITALS: RESP 16
[2017-11-10] MEDS ORDERED: Sodium Chloride 0.9% 250 ML IV SCH (10:45)
--- NOTE | 2017-11-10 12:51 | DCSUMMARY ---
Hospitalization Summary Hospital Course: Final Discharge Diagnosis: Current Visit Problems Problem Status Onset Code Pancreatitis Acute K85.90 Fatty liver disease, nonalcoholic Acute K76.0 Leukocytosis Acute D72.829 Diagnostic Data, Laboratory Data, and Procedures of Signifigance: Laboratory Results 11/06/17 11/10/17 11/10/17 Range/Units 10:50 06:08 06:08 WBC 11.68 H (4.8-10.8) 10^3/uL RBC 4.36 L (4.70-6.10) 10^6/uL Hgb 12.8 L (14.0-18.0) g/dL Hct 38.7 L (42.0-52.0) % MCV 88.8 (80-90) FL MCH 29.4 (27-31) PG MCHC 33.1 (33-37) g/dL RDW Std Deviation 42.3 (39-50) fL RDW Coeff of Marija 13.1 (11.5-14.5) % Plt Count 188 (140-350) 10*3/uL MPV 10.7 (7.4-12.2) FL Immature Gran % (Auto) 0.1 (0-5) % Neut % (Auto) 83.9 H (50-80) % Lymph % (Auto) 4.9 L (10-50) % [place] % (Auto) 9.5 (5-15) % Eos % (Auto) 1.5 (0-8) % Baso % (Auto) 0.1 (0-1) % Immature Gran # (Auto) 0.01 10*3/UL Neut # (Auto) 9.81 10*3/UL Lymph # (Auto) 0.57 10*3/uL [place] # (Auto) 1.11 H (0.3-0.8) 10*3/UL Eos # (Auto) 0.17 10*3/UL Baso # (Auto) 0.01 10*3/UL WBC Morphology Comment Normal morphology (NORM) Plt Morphology Comment Normal morphology (NORM) RBC Morph Comment Normal morphology (NORM) Sodium 138 (135-145) meq/L Potassium 3.7 L (3.8-5.2) meq/L Chloride 94 L (98-112) meq/L Carbon Dioxide 30 (23-33) meq/L Anion Gap 14 (5-20) BUN 10 (7-22) mg/dL Creatinine 0.7 (0.70-1.50) mg/dL Estimated GFR > 60 (>60 ml/min/1.73m(2)) BUN/Creatinine Ratio 14.28 (6-20) Glucose 150 H (78-110) mg/dL Calculated Osmolality 287.0 (267-292) mOsm/kg Calcium 8.9 (8.7-10.7) mg/dL Total Bilirubin 1.9 H (0.3-1.2) mg/dL AST 20 L (21-57) IU/L ALT 41 (21-72) IU/L Alkaline Phosphatase 75 (38-126) IU/L Total Protein 6.9 (6.1-8.0) g/dL Albumin 3.5 (3.5-4.8) g/dL Globulin 3.4 (2.50-4.10) g/dL Albumin/Globulin Ratio 1.00 L (1.3-2.0) mg/g Lipase 409 H (23-300) IU/L IgE 34.7 (<= 214) kU/L History and Physical pertinent to Admission: Past Medical History Medical History: None Surgical History: No prior surgeries Pertinent Family History: He states there is diabetes in his family concerning his mother and father. Past Social History: Does not smoke. Drinks occasional beer. . Has 3 children described as healthy. 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 Tobacco Use: Never Smoker Course of Hospitalization: Is a very nice 37-year-old gentleman who was admitted November 06 with a diagnosis of acute pancreatitis patient is still on a [employer] pump with no resolution of his pain he had a normal abdominal ultrasound which showed no gallbladder stones. Also had on an MRI of his pancreas which consistent with inflammation. He had an initial CT which also showed inflammation of his pancreas and a repeat CT which shows worse inflammation and fluid around the pancreas patient does have a white count with a left shift is lipase numbers are back up again and his pain is not any better still on a [employer] with the dilaudid. Discussed the case with the patient and his in a call and also with her local surgeon I've also discussed the case with Dr. Guzman which is a endoscopic specialist and surgeon down in [facility] at the [facility] and after I presented the case he graciously accepted the patient of possibly needing the specialized intervention with interventional radiology or surgery to take the fluid out all around his pancreas and further studies for the etiology of his pancreatitis I do not have have any other services here. I also discussed the case with his and himself and they both agreed and they're very pleased since he is not improving. His vital signs are stable On the date of discharge, the patient was examined: Gen.: No acute distress, alert, nontoxic Heart: Regular rate and rhythm, no murmurs, clicks, gallops, or rubs Lungs: Clear to auscultation bilaterally, breathing is nonlabored Abdomen/GI: Normal tones on auscultation, soft, tender left lower quadrant Musculoskeletal/extremities: No clubbing, cyanosis, or edema Vitals reviewed and are listed below Vital Signs (24 hrs) Temp Pulse Pulse Pulse Resp Resp BP 11/10/17 12:08 16 11/10/17 11:43 18 11/10/17 11:00 11/10/17 09:00 98.4 F 77 20 133/91 11/10/17 07:09 16 11/10/17 07:00 81 82 82 18 11/10/17 04:24 98.4 F 82 82 18 142/87 11/10/17 03:00 71 11/10/17 00:56 99.3 F 62 22 138/94 11/09/17 23:00 66 11/09/17 19:00 70 86 20 18 11/09/17 17:00 98.6 F 86 20 147/98 11/09/17 15:30 11/09/17 15:00 100 11/09/17 13:00 97.5 F 76 18 151/94 Pulse Ox 11/10/17 12:08 11/10/17 11:43 11/10/17 11:00 93 11/10/17 09:00 93 11/10/17 07:09 11/10/17 07:00 96 11/10/17 04:24 96 11/10/17 03:00 95 11/10/17 00:56 95 11/09/17 23:00 95 11/09/17 19:00 97 11/09/17 17:00 97 11/09/17 15:30 94 11/09/17 15:00 95 11/09/17 13:00 95 Assessment and Plan: 1. As per discharge assessments above 2. Disposition: [facility] accepted by Dr. Guzman 3. Condition on discharge, stable and improved. 4. Diet:npo 5. Activities: resume normal activities 6. Follow-Up: 1. PCP 2. 7. Medications at the Time of Discharge: 8. Time, care, counseling and coordination of care for this discharge is greater than 30 minutes. Exam - Vitals Vital Signs: Vital Signs Temperature 98.4 F Temperature Source Temporal Artery Scan Pulse Rate [Telemetry] 82 Pulse Rate [Pulse Oximeter] 77 Pulse Rate 81 Respiratory Rate [Abdomen] 16 Respiratory Rate 20 Blood Pressure [Right Arm] 133/91 Pulse Ox 93 Oxygen Flow Rate [Abdomen] 2 Oxygen Flow Rate 2 Oxygen Delivery Method Nasal Cannula Height 6 ft 2 in Weight 224 lb
[2017-11-13 14:21] LABS: DRVVT SCREEN RATIO 0.9
[2017-11-13 14:22] LABS: THROMBIN TIME 16 SEC
[2017-11-13 14:23] LABS: FIBRIONGEN EQUIVALENT UNITS 3.91 mcg/mL FEU
[2017-11-13 14:26] LABS: SOLUBLE FIBRIN MONOMER <8 mcg/mL
== END 2017-11-10 13:28 | DRG 440 ==
LOC: ER 09:48 → MED/SURG 12:07
PROVIDERS: ADMIT Family Medicine; ATTEND Family Medicine